=== PATIENT | female | born 1995 | race Caucasian/White ===

== ENCOUNTER 2019-12-29 11:50 | Emergency (ER) | payer OTHER ==
[~2019-12-29] VITALS: Ht 154.9 cm; Wt 59.0 kg
[2019-12-29 13:21] LABS: Urine Bacteria NONE SEEN /hpf (None Seen); Urine Blood Negative /uL (Negative); Urine Mucus FEW (None Seen); Urine Specific Gravity 1.031 (1.001-1.035); Urine WBC 6 /hpf (0 - 5)
[2019-12-29 13:42] LABS: Basophils # (auto) 0 uL; Basophils % (auto) 0.4 % (0.0-2.0); Eosinophils # (auto) 0.1 uL; Eosinophils % (auto) 1.1 % (0.0-7.0); Hematocrit 41.6 % (36.0-46.0); Hemoglobin 13.6 g/dL (12.2-16.2); Lymphocytes # (auto) 1.4 uL; Lymphocytes % (auto) 11.1 % (10.0-50.0); Mean Corpuscular Hemoglobin 28.2 pg (28.0-32.0); Mean Corpuscular Hgb Conc. 32.6 g/dL (32.0-36.0); Mean Corpuscular Volume 86.5 fL (80.0-100.0); Monocytes % (auto) 8.3 % (0.0-12.0); Neutrophils # (auto) 9.7 uL; Neutrophils % (auto) 79.1 % (37.0-80.0); Nucleated Red Blood Cells % 0.1 %; Platelet Count (auto) 399 10^3/uL (140-450); Red Blood Cells 4.81 10^6/uL (4.0-5.20); Red Cell Distribution Width 15.3 % (11.8-14.3); White Blood Cell 12.2 10^3/uL (4.4-10.8)
[2019-12-29] MEDS ORDERED: SODIUM CHLORIDE 0.9% 1,000 ML IVB ONE (13:44)
[2019-12-29] MEDS ORDERED: PROMETHAZINE HCL 25 MG/ML 1ML IV PRN (13:45)
[2019-12-29 13:58] LABS: Albumin 3.5 g/dL (3.4-5.0); BUN/Creatinine Ratio 14.1; Calcium 8.1 mg/dL (8.5-10.1); Potassium 4.4 mmol/L (3.5-5.1)
[2019-12-29 14:01] LABS: Bilirubin, Total 0.3 mg/dL (0.2-1.0); Total Protein 7.6 g/dL (6.4-8.2)
[2019-12-29 14:12] LABS: Magnesium 2.1 mg/dL (1.6-2.6)
[2019-12-29 16:19] VITALS: BP 114/80
== END 2019-12-29 16:21 | disposition home or self-care (01) ==
LOC: ER 11:50
DX: K52.9 Noninfective gastroenteritis and colitis, unspecified (principal); F17.210 Nicotine dependence, cigarettes, uncomplicated; Z91.040 Latex allergy status
CPT/HCPCS: 36415; 74176; 80053; 81001; 81025; 82150; 83690; 83735; 85025; 96360; 99284; J7030